=== PATIENT | male | born 1935 | race Caucasian/White ===

== ENCOUNTER 2018-11-24 13:20 | Inpatient (IN) | payer MEDICARE ==
[~2018-11-24 13:20] MED LIST: ISOVUE-370 76%-LOCM 1 ML ONE
--- NOTE | 2018-11-24 13:38 | CT ---
CT HEAD WITHOUT CONTRAST: 11/24/18 Multiple axial tomograms obtained through the head without IV enhancement. INDICATION: Stroke alert. Left side weakness. No comparison study. Mild cortical volume loss. Ventricles have normal size and position. No evidence of edema or hemorrha ge. No evidence of acute infarct. Sinuses are clear. IMPRESSION: No acute process. Findings relayed to Dr. Bro at 1:28 p.m. POS: [facility]
[2018-11-24 13:45] LABS: Hemoglobin 11.2 g/dL (14.0-18.0); Mean Corpuscular HGB CONC 32.9 g/dL (32.0-36.0); Mean Corpuscular Hemoglobin 29.8 pg (27.0-31.0); Mean Corpuscular Volume 90.8 fL (78.0-98.0); Mean Platelet Volume 8.3 fL (7.4-10.4); Platelet Count 218 thou/uL (130-400); RBC Distribution Width 12.1 % (11.5-14.5); Red Blood Cell (RBC) Count 3.77 mill/uL (4.70-6.10); White Blood Cell (WBC) Count 10.5 thou/uL (4.8-10.8)
[2018-11-24 13:50] LABS: INR-International Normal Ratio 1.3; PTT 36.9 SEC (22.9-36.1); Prothrombin Time 16.4 SEC (12.0-14.7)
[2018-11-24 13:56] LABS: ALT (SGPT) 16 U/L (8-55); AST (SGOT) 21 U/L (5-34); Albumin 3.4 g/dL (3.4-4.8); Alkaline Phosphatase 80 U/L (40-150); Anion Gap 12 mmol/L (10-20); BUN (Urea Nitrogen) 26 mg/dL (8.4-25.7); Bilirubin, Total 0.9 mg/dL (0.2-1.2); CK (CPK) 11 U/L (30-200); Calc. Creatinine Clearance 0 mL/min (70-130); Calcium 9.4 mg/dL (7.8-10.44); Carbon Dioxide 24 mmol/L (23-31); Chloride 99 mmol/L (98-107); Estimated GFR-MDRD 46; Globulin 3.3 g/dL (2.4-3.5); Glucose 115 mg/dL (83-110); Potassium 4.9 mmol/L (3.5-5.1); Protein, Total 6.7 g/dL (5.8-8.1); Sodium 130 mmol/L (136-145)
[2018-11-24 14:05] LABS: Band 5 % (5-11); Lymphocytes 6 % (21-51); MDiff Complete? YES; Monocytes 5 % (0-10); Neutrophil 84 % (42-75); Platelet Morphology Comment Appears Adequate
[2018-11-24 14:25] LABS: CKMB 0.7 ng/mL (0-6.6)
--- NOTE | 2018-11-24 14:28 | RAD ---
SINGLE VIEW OF THE CHEST: 11/24/18 COMPARISON: None. HISTORY: Left sided weakness and altered mental status. FINDINGS: Single view of the chest shows a normal sized cardiomediastinal silhouette. The patient is status pos t sternotomy. There is no evidence of consolidation, mass, or pleural effusion. Degenerative changes are seen in the spine and right shoulder. The patient has a healed fracture of the right clavicle. IMPRESSION: No evidence of acute cardiopulmonary disease. POS: [facility]
[2018-11-24 14:30] LABS: Bilirubin Negative (Negative); Blood, Urine Negative (Negative); Glucose, Urine (Dipstick) Negative (Negative); Leukocyte Negative (Negative); Nitrite Negative (Negative); Protein, Urine (Dipstick) Negative (Neg-Trace); Urobilinogen 0.2 mg/dL (Less than 2)
[2018-11-24 14:32] LABS: Clarity Clear (Clear)
[2018-11-24 14:56] LABS: INR-International Normal Ratio 1.4; PTT 37.8 SEC (22.9-36.1); Prothrombin Time 16.8 SEC (12.0-14.7)
--- NOTE | 2018-11-24 14:57 | PDOC.FPRHP ---
- History of Present Illness Chief Complaint: Weakness History of Present Illness: Mr. Bella is unable to provide much medical hx, he is AOx1 on exam, Denies any pain or other symptoms. The following hx is compiled from medical records sent with patient and medical staff. no family in exam room. no number provided. It was reported at approximately 1030 pt was noted to have L sided weakness and a change in mental status. EMS arrived and noted L sided weakness as well as slurred speech. pt was noted to be improved on arrival, NIH initially 3 and improving. He reports he is here to see if he has a stent blocked. He denies any pain, dizziness, SOB, visual disturbance, or GI upset ED Course: CMP, CBC, trop, CK, PT/INR, UA CT/CTA head reveal significant stenosis of right ICA, otherwise no bleed/ ischemia - History PMHx:Afib, HTN, BPH, GERD, CAD, HLD PSHx: Porcine valve replacement, multiple ortho sgx, coronary artery stent placement FHx: NC Social: remote hx of alcohol and tobacco abuse - Review of Systems ROS unobtainable: due to mental status - Vital signs BP 132/52, Pulse: 54, Resp: 18, Temp: 97.9 (Oral), Pain: 0, O2 sat: 100 on Room Air, FMR H&P: Results - Labs Result Diagrams: 11/24/18 13:30 11/24/18 13:30 Lab results: WBC 10.5 thou/uL (4.8-10.8) 11/24/18 13:30 Hgb 11.2 g/dL (14.0-18.0) L 11/24/18 13:30 Hct 34.2 % (42.0-52.0) L 11/24/18 13:30 MCV 90.8 fL (78.0-98.0) 11/24/18 13:30 Plt Count 218 thou/uL (130-400) 11/24/18 13:30 Band Neuts % (Manual) 5 % (5-11) 11/24/18 13:30 Sodium 130 mmol/L (136-145) L 11/24/18 13:30 Potassium 4.9 mmol/L (3.5-5.1) 11/24/18 13:30 Chloride 99 mmol/L (98-107) 11/24/18 13:30 Carbon Dioxide 24 mmol/L (23-31) 11/24/18 13:30 BUN 26 mg/dL (8.4-25.7) H 11/24/18 13:30 Creatinine 1.48 mg/dL (0.7-1.3) H 11/24/18 13:30 Glucose 115 mg/dL (83-110) H 11/24/18 13:30 Calcium 9.4 mg/dL (7.8-10.44) 11/24/18 13:30 Total Bilirubin 0.9 mg/dL (0.2-1.2) 11/24/18 13:30 AST 21 U/L (5-34) 11/24/18 13:30 ALT 16 U/L (8-55) 11/24/18 13:30 Alkaline Phosphatase 80 U/L (40-150) 11/24/18 13:30 Creatine Kinase 11 U/L (30-200) L 11/24/18 13:30 CK-MB (CK-2) 0.7 ng/mL (0-6.6) 11/24/18 13:30 Serum Total Protein 6.7 g/dL (5.8-8.1) 11/24/18 13:30 Albumin 3.4 g/dL (3.4-4.8) 11/24/18 13:30 Urine Ketones Negative mg/dL (Negative) 11/24/18 14:00 Urine Blood Negative (Negative) 11/24/18 14:00 Urine Nitrite Negative (Negative) 11/24/18 14:00 Ur Leukocyte Esterase Negative (Negative) 11/24/18 14:00 FMR H&P: A/P - Problem List (1) TIA (transient ischemic attack) Current Visit: Yes Status: Acute Code(s): G45.9 - TRANSIENT CEREBRAL ISCHEMIC ATTACK, UNSPECIFIED (2) Elevated troponin Current Visit: Yes Status: Acute Code(s): R74.8 - ABNORMAL LEVELS OF OTHER SERUM ENZYMES (3) JORGE L (acute kidney injury) Current Visit: Yes Status: Acute Code(s): N17.9 - ACUTE KIDNEY FAILURE, UNSPECIFIED (4) HTN (hypertension) Current Visit: Yes Status: Acute Code(s): I10 - ESSENTIAL (PRIMARY) HYPERTENSION (5) BPH (benign prostatic hyperplasia) Current Visit: Yes Status: Acute Code(s): N40.0 - BENIGN PROSTATIC HYPERPLASIA WITHOUT LOWER URINRY TRACT SYMP (6) GERD (gastroesophageal reflux disease) Current Visit: Yes Status: Acute Code(s): K21.9 - GASTRO-ESOPHAGEAL REFLUX DISEASE WITHOUT ESOPHAGITIS (7) Afib Current Visit: Yes Status: Acute Code(s): I48.91 - UNSPECIFIED ATRIAL FIBRILLATION - Plan TIA - L sided weakness and slurred speech seemingly resolved at this point, difficult neuro exam - CTA/CT brain/neck showing stenosis but no ischemic defect or bleed - with improving weakness, unsure hx. not a candidate for TPA - PT/PTT elevated - med list indicates asa, eliquis, clopidogrel, lipitor on board - Echo, MRI pending - NPO pending speech JORGE L - most likely prerenal, s/p 1L in ED - monitor BMP Elevated troponin - most likely demand, continue to trend HTN - permissive htn for 24hrs - resume home meds afterwards GERD - continue home meds Afib - continue home meds CAD - continue home meds code: OOH DNR provided ppx: jairo Dispo: obs on stroke, routine TIA work up Addendum - Attending - Attending Attestation Date/Time: 11/24/18 3005 I personally evaluated the patient and discussed the management with Dr. Carlos Alberto Hrerera. I agree with the History, Examination, Assessment and Plan documented above with any addition or exceptions noted below. Patient with unknown medical history as he is poor historian
--- NOTE | 2018-11-24 15:05 | CT ---
CTA OF THE NECK WITH CONTRAST CTA OF THE HEAD WITH CONTRAST 11/24/18 COMPARISON: CT brain 11/24/18. HISTORY: Right sided weakness. Possible stroke. TECHNIQUE: 1. Multiple contiguous axial images were obtained in a CTA of the neck with contrast. 3D sagitta l and coronal MIP reformats were performed. 2. Multiple contiguous axial images were obtained in a CTA of the head with contrast. 3D sagitta l and coronal MIP reformats were performed. FINDINGS: CTA NECK: Atherosclerotic disease is seen in the aortic arch. The subclavian arteries are patent without signif icant focal atherosclerotic disease. The common carotid arteries have a normal origin from the aortic arch. No significant proximal atherosclerotic disease is seen. The patient has a stent in the left distal common carotid artery as well as a stent in the proximal l eft internal carotid artery. There is an area of focal stenosis along the proximal aspect of the inte rnal carotid artery stent with approximately 75% luminal stenosis per NASCET criteria. The proximal right internal carotid artery is heavily calcified over a length of approximately 1.4 cm . There is a high grade stenosis of greater than 90% in the proximal right internal carotid artery pe r NASCET criteria. Both external carotid arteries are patent. The left vertebral artery is seen proximally. The right vertebral artery is not seen proximally. Verma kristen, the cervical aspect of the right vertebral artery is seen and is diminutive compared to the left . No significant calcifications are seen involving the course of the right vertebral artery proximall y. The visualized lung apices are unremarkable. No cervical adenopathy is seen. The patient is status po st sternotomy. Degenerative changes are seen in the spine. CTA HEAD: The cavernous portion of the bilateral internal carotid arteries are heavily diseased without signifi cant focal narrowing. The bilateral intracranial internal carotid arteries are normal in caliber and branch into normal appearing anterior and middle cerebral arteries. There is no evidence of focal raimundo nosis, occlusion, or aneurysmal dilatation of the anterior circulation. The left vertebral artery is dominant. The vertebral artery form a normal appearing basilar artery. T he posterior cerebral arteries and cerebellar arteries are patent. There is no evidence of focal sten osis, aneurysmal dilatation, or occlusion in the posterior circulation. IMPRESSION: 1. Severe stenosis of the proximal right internal carotid artery of greater than 90%. 2. Status post stenting of the left carotid artery with narrowing of the proximal aspect of the left internal carotid artery stent as above. 3. Diminutive proximal right vertebral artery. This may represent a hypoplastic right vertebral artery or occlusion of the proximal vertebral artery with retrograde flow in the right vertebral mana ry via collaterals. 4. No evidence of intracranial significant vascular abnormality. Dr. Bro notified of the findings at 2:37 p.m. on 11/24/18.
[2018-11-24] MEDS ORDERED: Aspirin Chewable 81 MG TAB ONE (15:40)
[2018-11-24 17:26] LABS: Troponin I 0.028 ng/mL (< 0.028)
[2018-11-24] MEDS ORDERED: Ondansetron PF 4 MG/2 ML Vial IVP PRN (17:28)
[2018-11-24] MEDS ORDERED: Acetaminophen 650 MG Suppository PR PRN (17:28)
[2018-11-24] MEDS ORDERED: Ondansetron ODT 4 MG TAB PO PRN (17:28)
[2018-11-24] MEDS ORDERED: hydrALAZINE 20 MG/ML VIAL SLOW IVP PRN (17:28)
[2018-11-24 18:11] VITALS: BMI 33.4
[2018-11-24 21:20] LABS: Troponin I 0.016 ng/mL (< 0.028)
[2018-11-25 05:56] LABS: Anion Gap 10 mmol/L (10-20); BUN (Urea Nitrogen) 22 mg/dL (8.4-25.7); Calc. Creatinine Clearance 67 mL/min (70-130); Calcium 9.6 mg/dL (7.8-10.44); Carbon Dioxide 26 mmol/L (23-31); Chloride 100 mmol/L (98-107); Estimated GFR-MDRD 50; Glucose 96 mg/dL (83-110); Potassium 4.4 mmol/L (3.5-5.1); Sodium 132 mmol/L (136-145)
--- NOTE | 2018-11-25 08:08 | PDOC.FM ---
- Subjective Subjective: pt resting comfortably in bed, at bedside reports he is near baseline b/l LE weakness, wheelchair bound - Objective Vital Signs & Weight: Vital Signs (12 hours) Temp Pulse Resp BP Pulse Ox 11/25/18 07:55 100.3 F H 70 18 156/66 H 99 11/25/18 00:00 98.9 F 65 16 152/60 H 94 L Weight Weight 111.811 kg I&O: 11/24/18 11/25/18 11/26/18 06:59 06:59 06:59 Output Total 250 Balance -250 Result Diagrams: 11/24/18 13:30 11/25/18 05:09 Phys Exam - Physical Examination Constitutional: NAD HEENT: moist MMs Neck: supple Respiratory: clear to auscultation bilateral Cardiovascular: no significant murmur Gastrointestinal: no distention Musculoskeletal: pulses present Neurological: moves all 4 limbs Psychiatric: normal affect Skin: no rash Dx/Plan (1) TIA (transient ischemic attack) Code(s): G45.9 - TRANSIENT CEREBRAL ISCHEMIC ATTACK, UNSPECIFIED Status: Acute (2) Elevated troponin Code(s): R74.8 - ABNORMAL LEVELS OF OTHER SERUM ENZYMES Status: Acute (3) JORGE L (acute kidney injury) Code(s): N17.9 - ACUTE KIDNEY FAILURE, UNSPECIFIED Status: Acute (4) HTN (hypertension) Code(s): I10 - ESSENTIAL (PRIMARY) HYPERTENSION Status: Acute (5) BPH (benign prostatic hyperplasia) Code(s): N40.0 - BENIGN PROSTATIC HYPERPLASIA WITHOUT LOWER URINRY TRACT SYMP Status: Acute (6) GERD (gastroesophageal reflux disease) Code(s): K21.9 - GASTRO-ESOPHAGEAL REFLUX DISEASE WITHOUT ESOPHAGITIS Status: Acute (7) Afib Code(s): I48.91 - UNSPECIFIED ATRIAL FIBRILLATION Status: Acute - Plan Plan: TIA - L sided weakness and slurred speech seemingly resolved at this point, difficult neuro exam - CTA/CT brain/neck showing stenosis but no ischemic defect or bleed - with improving weakness, unsure hx. not a candidate for TPA - PT/PTT elevated - med list indicates asa, eliquis, clopidogrel, lipitor on board - Echo, MRI pending - NPO pending speech ICA stenosis - revealed on CTA, contralateral side stented in the past - medical mgmt optimized - will consult CV surg for surgical options JORGE L, improved - most likely prerenal, s/p 1L in ED - monitor BMP Elevated troponin, resolved - most likely demand, downtrended HTN - permissive htn for 24hrs - resume home meds afterwards GERD - continue home meds Afib - continue home meds CAD - continue home meds code: OOH DNR provided ppx: jairo Dispo: consider placement vs DC home pending MRI/Echo Addendum - Attending - Attending Attestation Date/Time: 11/25/18 1052 I personally evaluated the patient and discussed the management with Dr. Herrera. I agree with the History, Examination, Assessment and Plan documented above with any addition or exceptions noted below.
[2018-11-25] MEDS ORDERED: Potassium Chloride 10 MEQ TAB PO SCH ×2 (09:00→11:30)
[2018-11-25] MEDS ORDERED: Apixaban 5 MG TAB PO SCH (09:00)
[2018-11-25] MEDS ORDERED: Albuterol Sulfate 2.5 mg/3 ml Neb ONE (10:18)
[2018-11-25] MEDS: Albuterol Sulfate 2.5 mg/3 ml Neb NEB SCH (10:25)
[2018-11-25] MEDS: Acetaminophen 325 MG TAB PO PRN (11:14)
[2018-11-25] MEDS: Furosemide 40 MG TAB PO SCH (11:16)
[2018-11-25] MEDS: Aspirin 81 mg Enteric Coated Tablet PO SCH (11:16)
[2018-11-25] MEDS: Clopidogrel Bisulfate 75 MG TAB PO SCH (11:16)
--- NOTE | 2018-11-25 14:33 | MRI ---
MRI BRAIN WITHOUT CONTRAST: INDICATIONS: TIA. FINDINGS: Motion artifact degrades the study. Mild cortical volume loss. Mild chronic ischemic white matter c hange is seen in the periventricular regions. The diffusion-weighted sequence does show restricted diffusion involving the posterior insular cortex , extending into the posterior frontal and parietal lobe cortex. There are also numerous tiny foci of restricted diffusion seen in the stratton-white junction of both cer ebral hemispheres, superiorly. The intracranial internal carotid arteries and cerebral arteries show flow voids. IMPRESSION: Acute cortical infarct involving the right posterior insular cortex, extending into the right posteri or frontal parietal cortex. This could be explained on the basis of the severe right carotid stenosi s described on yesterday's CT angio study. However, there are numerous tiny foci of restricted diffu elisabeth seen in the stratton-white junction of both cerebral hemispheres. This raises the question of possi ble embolic phenomenon, and I recommend clinical correlation regarding etiology and possible origin o f emboli. POS: [facility]
[2018-11-25] MEDS: Atorvastatin Calcium 10 MG TAB PO SCH (20:55)
[2018-11-25] MEDS: Apixaban 5 MG TAB PO SCH (20:55)
[2018-11-25] MEDS: Famotidine 20 MG TAB PO SCH (20:55)
[2018-11-25] MEDS: Metoprolol Tartrate 25 MG TAB PO SCH (20:55)
--- NOTE | 2018-11-25 22:50 | CON ---
DATE OF CONSULTATION: 11/25/2018 CONSULTING PHYSICIAN: Hospitalist Service. IMPRESSION: 1. Right small cortical infarct with left-sided weakness, which appears to be improving. 2. Right internal carotid artery stenosis of 90%. 3. Left internal carotid artery stenosis of 75% above a prior stent. 4. Ventricular aneurysm with clot. 5. The patient is already on maximum medical therapy. PLAN: 1. Transfer to intermediate. 2. Follow up with his vascular surgeon in [place]. HISTORY OF PRESENT ILLNESS: Mr. Bella is an 83-year-old gentleman with a past history of aortic valve replacement, secondary ventricular aneurysm, and a clot that was known. He had amaurosis fugax about a year ago and had a left carotid stent placed. He has been on a combination of Eliquis, Plavix, and aspirin until not long ago. Aspirin was discontinued by his customer supply coordinator. He presented with acute left-sided weakness. His MRI of the brain shows a small area of infarction in the right posterior parietal region. He has some moderate small vessel ischemic changes otherwise. His carotid disease is as noted above. PAST MEDICAL HISTORY: Hypertension, atrial fibrillation, amaurosis fugax. ALLERGIES: SULFA. SOCIAL HISTORY: No tobacco use. FAMILY HISTORY: Noncontributory. REVIEW OF SYSTEMS: Ten-system review of systems is otherwise negative. PHYSICAL EXAMINATION: GENERAL: He is a somewhat overweight elderly gentleman, lying in bed, in no distress. VITAL SIGNS: Blood pressure 137/60, pulse 75, respirations 18, and temperature 99.4. HEENT: Pupils are equal. Conjunctivae are clear. His cranium is normocephalic and atraumatic. NECK: No lymphadenopathy. EXTREMITIES: No cyanosis. NEUROLOGIC: He is alert and cooperative. He is markedly hard of hearing. Cranial nerves appear to be intact. Motor exam shows antigravity strength in the left arm with some slight clumsiness. He has only partial antigravity strength in the left leg. Sensation is grossly intact. No tremor or dysmetria is present. Gait is not tested due to his weakness. IMAGING: Reviewed. LABORATORY STUDIES: White blood cell count 10.5, hemoglobin 11.2. INR is 1.3. BUN 26, creatinine 1.48, and urine was clear. SUMMARY: This is an elderly gentleman with possible embolic stroke related to his right carotid disease. He is already on antiplatelet and anticoagulant therapy. It is not much more we can really do other than assist in his recovery. Job ID: [id number]
--- NOTE | 2018-11-25 22:58 | CON ---
DATE OF CONSULTATION: HISTORY OF PRESENT ILLNESS: Mr. Bella is an 83-year-old gentleman, who has an extensive vascular and cardiac history. He has been cared for by the [facility]. He was at home and had multiple recent neurologic events, which led to eventually his left leg becoming nonfunctional. They called for an ambulance and it was felt he needed helicopter. The helicopter that was sent was [facility] from [facility] and he was brought here. Once he arrived here, his left arm and leg were found to be weak, but were getting better. He has chronic speech difficulties. He has a history of left internal carotid stent placed 1 year ago in [place] for a bout of amaurosis fugax. He has recovered some vision in his left eye, but it is not completely recovered. He has history of bioprosthetic aortic valve replacement. 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 He has been managed on Eliquis 5 mg b.i.d. until recently when his primary care doctor backed the Eliquis to once a day. He has been on Plavix chronically after his carotid stent. He also had been on aspirin 81 mg a day, which has been stopped recently. As part of his workup, he had a CT angiogram of his neck performed, which shows approximately 70% to 80% restenosis on the left of his carotid system. He also has a 90% proximal right carotid stenosis. MRI of his brain shows multiple infarcts in his right middle cerebral territory. There are no left-sided infarcts. An echocardiogram has been ordered to evaluate his ventricle and valve, but it has not been completed. Currently, he is resting comfortably in bed. He does have some weakness of his left leg, but his left arm seems to be fairly strong. His speech is at his baseline per his . PAST MEDICAL HISTORY: 1. Atrial fibrillation. 2. Hypertension. 3. BPH with prostatitis. 4. GERD. 5. Coronary artery disease. 6. Dyslipidemia. 7. Aortic stenosis. 8. Carotid stenosis with left-sided stent placement. PAST SURGICAL HISTORY: 1. Bovine pericardial aortic valve replacement. 2. Multiple orthopedic surgeries. 3. Left carotid stenting. 4. Coronary stent placement. SOCIAL HISTORY: He does not use alcohol or tobacco currently. REVIEW OF SYSTEMS: Not performed due to the patient's speech difficulties. PHYSICAL EXAMINATION: GENERAL: A well-developed man, resting comfortably in bed. VITAL SIGNS: His height is 6 feet, weight is 246 pounds. BSA is 2.38. His temperature is 99.4, pulse is 75 and regular, blood pressure is 137/60. HEENT: Sclerae nonicteric. Pupils are equal and round bilaterally. NECK: Supple. He has bilateral carotid bruits. CHEST: Clear bilaterally. He has a good valve snap. HEART: Rhythm is regular. ABDOMEN: Soft and nontender. EXTREMITIES: There is no cyanosis, clubbing, or edema. ASSESSMENT AND PLAN: Mr. Bella is an 83-year-old gentleman, who has a complicated cardiac and vascular history in regard to his cerebrovascular system. 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 I would resume his Eliquis at 5 mg b.i.d. currently. It is unclear to me whether his stroke is carotid in origin or left ventricular thrombus in origin. Due to the multifocal nature of this, I would lean towards embolic in nature from his left ventricle. This also could be from his aortic valve. I would continue his Plavix at its current level. Once he is recovered, he should follow up with the physicians in [place], who have a better handle on his overall situation. Job ID: [id number]
[2018-11-26] MEDS: Acetaminophen 325 MG TAB PO PRN ×2 (01:08→18:06)
[2018-11-26 02:11] LABS: #Eosinphils 0.1 thou/uL (0.0-0.7); #Monocytes 0.9 thou/uL (0.11-0.59); %Basophils 0.3 % (0.0-1.0); %Eosinophils 0.8 % (0.0-10.0); %Lymphocytes 11.4 % (21.0-51.0); %Monocytes 9.6 % (0.0-10.0); %Neutrophils 77.8 % (42.0-75.0); Hemoglobin 11.1 g/dL (14.0-18.0); Mean Corpuscular Hemoglobin 31.9 pg (27.0-31.0); Mean Corpuscular Volume 91.1 fL (78.0-98.0); Mean Platelet Volume 7.7 fL (7.4-10.4); Platelet Count 189 thou/uL (130-400); RBC Distribution Width 12.3 % (11.5-14.5)
[2018-11-26] MEDS: Furosemide 20 MG TAB PO SCH (08:57)
[2018-11-26] MEDS: Potassium Chloride 10 MEQ TAB PO SCH (08:58)
[2018-11-26] MEDS: Clopidogrel Bisulfate 75 MG TAB PO SCH (08:58)
[2018-11-26] MEDS: Famotidine 20 MG TAB PO SCH ×2 (08:58→21:00)
[2018-11-26] MEDS: Aspirin 81 mg Enteric Coated Tablet PO SCH (08:59)
[2018-11-26] MEDS: Losartan 25 MG TAB PO SCH (08:59)
[2018-11-26] MEDS: Apixaban 5 MG TAB PO SCH ×2 (08:59→21:00)
--- NOTE | 2018-11-26 09:01 | RAD ---
Chest one view HISTORY: Dyspnea. Fever. COMPARISON: 11/24/2018. FINDINGS: Cardiac silhouette is magnified by projection and upper limits of normal in size. Pulmonary vasculature now within normal limits. Mediastinum is midline with postoperative changes and aortic calcification. No lobar consolidation or evidence of pneumothorax. Severe degenerative changes right shoulder. Old right rib fractures. IMPRESSION: Interval decrease in pulmonary vascular congestion. No new abnormalities are demonstrated .
--- NOTE | 2018-11-26 09:04 | PDOC.FM ---
- Subjective Subjective: pt resting comfortably in bed, fevered overnight, no complaints this morning. - Objective Vital Signs & Weight: Vital Signs (12 hours) Temp Pulse Resp BP Pulse Ox 11/26/18 07:39 98.2 F 59 L 16 137/58 L 92 L 11/26/18 03:59 94 L 11/26/18 03:10 98.9 F 65 20 130/64 94 L 11/25/18 23:18 100.7 F H 65 20 163/67 H 93 L Weight Weight 111.811 kg I&O: 11/25/18 11/26/18 11/27/18 06:59 06:59 06:59 Intake Total 460 Output Total 250 1125 Balance -250 -665 Result Diagrams: 11/26/18 02:03 11/25/18 05:09 Phys Exam - Physical Examination Constitutional: NAD HEENT: moist MMs Neck: no JVD Respiratory: clear to auscultation bilateral Cardiovascular: RRR, no significant murmur Gastrointestinal: soft, no distention Musculoskeletal: pulses present Neurological: moves all 4 limbs Psychiatric: normal affect Skin: no rash Dx/Plan (1) TIA (transient ischemic attack) Code(s): G45.9 - TRANSIENT CEREBRAL ISCHEMIC ATTACK, UNSPECIFIED Status: Acute (2) Elevated troponin Code(s): R74.8 - ABNORMAL LEVELS OF OTHER SERUM ENZYMES Status: Acute (3) JORGE L (acute kidney injury) Code(s): N17.9 - ACUTE KIDNEY FAILURE, UNSPECIFIED Status: Acute (4) HTN (hypertension) Code(s): I10 - ESSENTIAL (PRIMARY) HYPERTENSION Status: Acute (5) BPH (benign prostatic hyperplasia) Code(s): N40.0 - BENIGN PROSTATIC HYPERPLASIA WITHOUT LOWER URINRY TRACT SYMP Status: Acute (6) GERD (gastroesophageal reflux disease) Code(s): K21.9 - GASTRO-ESOPHAGEAL REFLUX DISEASE WITHOUT ESOPHAGITIS Status: Acute (7) Afib Code(s): I48.91 - UNSPECIFIED ATRIAL FIBRILLATION Status: Acute - Plan Plan: CVA - L sided weakness and slurred speech seemingly resolved at this point, difficult neuro exam - CTA/CT brain/neck showing stenosis but no ischemic defect or bleed - with improving weakness, unsure hx. not a candidate for TPA - PT/PTT elevated, med list indicates asa, eliquis, clopidogrel, lipitor on board - Echo pending - MRI reveals acute cortical infarct, right posterior - neurology, Dr. Hernandez consulted, appreciate recs - continue medical mgmt, rehab ICA stenosis - revealed on CTA, contralateral side stented in the past - medical mgmt optimized - will consult CV surg for surgical options - recommend f/u with CV surg outpt JORGE L, improved - most likely prerenal, s/p 1L in ED - monitor BMP Elevated troponin, resolved - most likely demand, downtrended HTN - permissive htn for 24hrs - resume home meds afterwards GERD - continue home meds Afib - continue home meds CAD - continue home meds code: OOH DNR provided ppx: jairo Dispo: stable for DC to rehab when available Addendum - Attending - Attending Attestation Date/Time: 11/26/18 2039 I personally evaluated the patient and discussed the management with Dr. Herrera. I agree with the History, Examination, Assessment and Plan documented above with any addition or exceptions noted below.
[2018-11-26] MEDS ORDERED: Vancomycin HCl 1.75 GM in Sodium Chloride 0.9% 500 ML IVPB SCH (18:00)
[2018-11-26] MEDS: Metoprolol Tartrate 25 MG TAB PO SCH (21:00)
[2018-11-26] MEDS: Atorvastatin Calcium 10 MG TAB PO SCH (21:00)
[2018-11-27 05:18] LABS: #Eosinphils 0.1 thou/uL (0.0-0.7); #Lymphocytes 1.2 thou/uL (1.20-3.40); #Neutrophils 6.5 thou/uL (1.40-6.50); %Basophils 0.3 % (0.0-1.0); %Eosinophils 1.2 % (0.0-10.0); %Lymphocytes 13.2 % (21.0-51.0); %Monocytes 11.3 % (0.0-10.0); Hemoglobin 10.9 g/dL (14.0-18.0); Mean Corpuscular HGB CONC 33.2 g/dL (32.0-36.0); Mean Corpuscular Hemoglobin 30.1 pg (27.0-31.0); Mean Corpuscular Volume 90.7 fL (78.0-98.0); Mean Platelet Volume 8.2 fL (7.4-10.4); Platelet Count 193 thou/uL (130-400); RBC Distribution Width 12.3 % (11.5-14.5); Red Blood Cell (RBC) Count 3.63 mill/uL (4.70-6.10); White Blood Cell (WBC) Count 8.7 thou/uL (4.8-10.8)
[2018-11-27 05:45] LABS: ALT (SGPT) 11 U/L (8-55); AST (SGOT) 16 U/L (5-34); Albumin 3.1 g/dL (3.4-4.8); Alkaline Phosphatase 72 U/L (40-150); Anion Gap 12 mmol/L (10-20); BUN (Urea Nitrogen) 25 mg/dL (8.4-25.7); Calc. Creatinine Clearance 58 mL/min (70-130); Calcium 9.1 mg/dL (7.8-10.44); Carbon Dioxide 24 mmol/L (23-31); Chloride 97 mmol/L (98-107); Estimated GFR-MDRD 42; Glucose 105 mg/dL (83-110); Potassium 4.1 mmol/L (3.5-5.1); Protein, Total 6.1 g/dL (5.8-8.1); Sodium 129 mmol/L (136-145)
--- NOTE | 2018-11-27 07:15 | PDOC.FM ---
- Subjective Subjective: pt resting comfortably in bed, no events overnight. at bedside reports no new weakness, or headache - Objective Vital Signs & Weight: Vital Signs (12 hours) Temp Pulse Resp BP Pulse Ox 11/27/18 03:05 98.5 F 61 20 105/60 95 11/26/18 23:05 98.5 F 51 L 20 110/62 94 L 11/26/18 20:00 98 11/26/18 19:20 98.5 F 88 20 123/65 98 Weight Weight 111.811 kg I&O: 11/26/18 11/27/18 11/28/18 06:59 06:59 06:59 Intake Total 460 410 Output Total 1125 350 Balance -665 60 Result Diagrams: 11/27/18 04:51 11/27/18 04:51 Phys Exam - Physical Examination Constitutional: NAD HEENT: moist MMs Neck: no JVD Respiratory: clear to auscultation bilateral Cardiovascular: RRR murmur Gastrointestinal: no distention Musculoskeletal: pulses present Neurological: moves all 4 limbs Psychiatric: normal affect Skin: no rash Dx/Plan (1) TIA (transient ischemic attack) Code(s): G45.9 - TRANSIENT CEREBRAL ISCHEMIC ATTACK, UNSPECIFIED Status: Acute (2) Elevated troponin Code(s): R74.8 - ABNORMAL LEVELS OF OTHER SERUM ENZYMES Status: Acute (3) JORGE L (acute kidney injury) Code(s): N17.9 - ACUTE KIDNEY FAILURE, UNSPECIFIED Status: Acute (4) HTN (hypertension) Code(s): I10 - ESSENTIAL (PRIMARY) HYPERTENSION Status: Acute (5) BPH (benign prostatic hyperplasia) Code(s): N40.0 - BENIGN PROSTATIC HYPERPLASIA WITHOUT LOWER URINRY TRACT SYMP Status: Acute (6) GERD (gastroesophageal reflux disease) Code(s): K21.9 - GASTRO-ESOPHAGEAL REFLUX DISEASE WITHOUT ESOPHAGITIS Status: Acute (7) Afib Code(s): I48.91 - UNSPECIFIED ATRIAL FIBRILLATION Status: Acute - Plan Plan: CVA - L sided weakness and slurred speech seemingly resolved at this point, difficult neuro exam - CTA/CT brain/neck showing stenosis but no ischemic defect or bleed, consider septic emboli - optimized medical mgmt - TTE pending - MRI reveals acute cortical infarct, right posterior - neurology, Dr. Hernandez consulted, appreciate recs - rhehab pending PVE - intermittent fever, possible embolic disease, hx of blood infections/Porcine valve placement - echocardiogram pending, vanc started - BCx E. Faecalis, consider adding gent today - consult cards, HONG - discuss need for surgery and/or transfer ICA stenosis - revealed on CTA, contralateral side stented in the past - medical mgmt optimized - will consult CV surg for surgical options - recommend f/u with CV surg outpt JORGE L, improved - most likely prerenal, s/p 1L in ED - monitor BMP Elevated troponin, resolved - most likely demand, downtrended HTN - permissive htn for 24hrs - resume home meds afterwards GERD - continue home meds Afib - continue home meds CAD - continue home meds code: OOH DNR provided ppx: jairo Dispo: discuss goals of care today Addendum - Attending - Attending Attestation Date/Time: 11/27/18 9822 I personally evaluated the patient and discussed the management with Dr. Herrera. I agree with the History, Examination, Assessment and Plan documented above with any addition or exceptions noted below. Patient here with CVA and what appears to be new diagnosis of Enterococcus f. bacteremia in the setting of non [place] heart valve. reports history of frequent prostatitis in the past, has had routine and normal colonoscopies so do not suspect colon origin. We are not currently sure where this could be coming from. He will continue on Vanc until sensitivities result. Will consult ID. Echo did not show any vegetations however it was TTE. Renal function overall stable. PCT stable. He has been accepted for rehab and awaiting insurance authorization. Await recs regarding abx from ID. Patient may need to consider inpatient transfer versus outpatient follow up with his CV surgeon in the case he needs further interventions for suspected endocarditis.
[2018-11-27] MEDS: Albuterol Sulfate 2.5 mg/3 ml Neb NEB SCH (07:37)
[2018-11-27] MEDS ORDERED: Lactated Ringer's 1,000 ML IV SCH (08:45)
[2018-11-27] MEDS: Potassium Chloride 10 MEQ TAB PO SCH (09:07)
[2018-11-27] MEDS: Aspirin 81 mg Enteric Coated Tablet PO SCH (09:09)
[2018-11-27] MEDS: Apixaban 5 MG TAB PO SCH ×2 (09:09→19:43)
[2018-11-27] MEDS: Famotidine 20 MG TAB PO SCH ×2 (09:10→19:43)
[2018-11-27] MEDS: Clopidogrel Bisulfate 75 MG TAB PO SCH (09:11)
[2018-11-27] MEDS: Furosemide 40 MG TAB PO SCH (09:36)
[2018-11-27] MEDS ORDERED: SODIUM CHLORIDE 0.9% IVPB SCH (10:00)
[2018-11-27] MEDS ORDERED: GENTAMICIN SULFATE IVPB SCH (10:00)
[2018-11-27] MEDS: Losartan 25 MG TAB PO SCH (10:04)
--- NOTE | 2018-11-27 11:58 | EKG ---
Test Reason : Blood Pressure : / mmHG Vent. Rate : 050 BPM Atrial Rate : 050 BPM P-R Int : 000 ms QRS Dur : 132 ms QT Int : 476 ms P-R-T Axes : 000 -20 008 degrees QTc Int : 433 ms Atrial fibrillation with slow ventricular response Right bundle branch block Cannot rule out Inferior infarct , age undetermined Abnormal ECG Confirmed by DEE DEE TAFOYA D.O. ([id number]), makeup editor EMILE HERCULES ([id number]) on 11/27/2018 11:58:35 AM Referred By: Confirmed By:DEE DEE TAFOYA D.O.
--- NOTE | 2018-11-27 15:00 | CON ---
DATE OF CONSULTATION: 11/27/2018 REASON FOR CONSULTATION: Sepsis and previous history of aortic valve replacement. HISTORY OF PRESENT ILLNESS: Mr. Bella is an 83-year-old gentleman, who has a history of CAD, status post stent placement in addition to aortic valve replacement in 2013. His states he has had significant issues with sepsis and infection mainly from his prostate. He recently presented with CVA with left-sided weakness. He has had some recovery. Dr. Kevin Paredes has been consulted on significant carotid disease. From a CV standpoint, he has had significant issues with sepsis and has been placed on IV antibiotics for several weeks over the last year. No other ameliorating, exacerbating, or precipitating factors present. PAST MEDICAL HISTORY: CAD; aortic stenosis, status post AVR; AFib; BPH; acid reflux; and hyperlipidemia. FAMILY HISTORY: As above. SOCIAL HISTORY: No current tobacco or alcohol use. REVIEW OF SYSTEMS: Ten-point review of systems is difficult to assess. PHYSICAL EXAMINATION: GENERAL: The patient is a pleasant 83-year-old, who is in no acute distress. The patient appears their stated age. VITAL SIGNS: Blood pressure 119/60, pulse 67, and temperature 99. NEUROLOGIC: The patient is alert and oriented x3. Left-sided weakness. HEENT: Sclerae without icterus. Mouth has moist mucous membranes with normal pallor. NECK: No JVD. Carotid upstroke brisk. No bruits bilaterally. LUNGS: Clear to auscultation with unlabored respirations. BACK: No scoliosis or kyphosis. CARDIAC: Regular rate and rhythm with normal S1 and S2. No S3 or S4 noted. No significant rubs, murmurs, thrills, or gallops noted throughout the precordium. PMI is not displaced. There is no parasternal heave. ABDOMEN: Soft, nontender, nondistended. No peritoneal signs present. No hepatosplenomegaly. No abnormal striae. EXTREMITIES: 2+ femoral and 2+ dorsalis pedis pulses. No cyanosis, clubbing, or edema. SKIN: No gross abnormalities. PERTINENT LABORATORY DATA: Hemoglobin 10.9. Creatinine 1.58 and albumin 3.1. IMPRESSION: 1. Recent Escherichia coli sepsis. 2. Status post aortic valve replacement. 3. Previous bouts of sepsis. 4. Atrial fibrillation. 5. Previous cerebrovascular accident. RECOMMENDATIONS: It would certainly seem reasonable to proceed with HONG to assess the aortic valve. We would also assess the mitral valve. There is also history of LV aneurysm with thrombus, which was not appreciated on recent echo. I discussed procedure in full detail with Mr. Bella. Risks included, but not limited to the following: Damage to teeth, mouth, back of throat, damage to esophagus requiring emergency surgery as well as reaction to medication. All questions were answered. Given the above, the patient agreed to proceed with above procedure. Job ID: [id number] MTDD
[2018-11-27] MEDS: Ampicillin 2 GM in Sodium Chloride 0.9% 100 ML IVPB SCH ×2 (18:44→23:31)
--- NOTE | 2018-11-27 19:22 | CON ---
DATE OF CONSULTATION: REASON FOR CONSULTATION: Bacteremia, likely endocarditis. HISTORY OF PRESENT ILLNESS: 83-year-old who has a history of BPH with 2 or 3 different TURPs in the past, nephrolithiasis, A-flutter, who has had an aortic valve replacement with a porcine valve in [place] a few years ago. He developed a left-sided weakness of fairly rapid onset a few days before admission, associated with slurred speech. He had neglect of the left arm, was brought to the emergency room. BP 120/60, pulse 60, O2 saturation 96%. His temperature is normal. Initial labs with a white cell count 10.5, hemoglobin 11, platelets 218 with 84% neutrophils. INR 1.3. His creatinine 1.37, now 1.58, albumin 3.1. Urinalysis was normal. Two sets of blood cultures with Enterococcus faecalis. An echocardiogram showed EF 50% to 55% with dilated left atrium, mild to moderate tricuspid regurg. Currently, Mr. Bella is awake. He has marked hearing impairment and cannot interact verbally very well. He does understand the questions and make hand signals. His is in the room and answered most of the questions. No reports of headaches, visual symptoms, sore throat, odynophagia, dysphagia, no vomiting, no hematemesis, or melena. No dyspnea or chest pain. No abdominal pain or diarrhea. He is voiding without any difficulty. PAST MEDICAL HISTORY: BPH, TURP x3, nephrolithiasis, A-flutter, aortic valve replacement with porcine valve in [place]. PAST SURGICAL HISTORY: Also includes hemorrhoidectomy, screws in the right ankle for fracture, left knee replacement, infected left knee, eventual revision, which was successful. Also had coronary angiograms and stents. ALLERGIES: SULFONAMIDE ANTIBIOTICS. FAMILY HISTORY: Noncontributory. CURRENT MEDICATIONS: 1. Tylenol. 2. Ventolin. 3. Eliquis. 4. Ecotrin. 5. Lipitor. 6. Vitamin D. 7. Plavix. 8. Pepcid. 9. Gentamicin. 10. Metoprolol. 11. Potassium. 12. Vancomycin. PHYSICAL EXAMINATION: VITAL SIGNS: Temperature max 100.7, now he is 98.7, blood pressure 106/75, pulse 61, respirations 18, O2 saturation 96. SKIN: Peripheral IV access. No other findings of significance. No lymphadenopathy. HEENT: Ocular movements conjugate. Nasal passages patent. Ear exam normal. Oral cavity with no [place] teeth remaining in place. NECK: Supple, no jugular vein distention or carotid bruits. LUNGS: Symmetric, clear breath sounds. HEART: S1-S2 without obvious murmurs, regular rate. ABDOMEN: Soft, not distended or tender. No ascites. No bladder distention. No organomegaly. EXTREMITIES: Some limitation of range of motion left knee, but no inflammatory changes noted. Pulses 1+ in dorsalis pedis. Plantar responses are upgoing on the left side. The patient has fairly dense hemiplegia or hemiparesis, left side. Right side strength is normal. NEURO: He is awake, recognizes and daughter and knows where he is. The interview was limited because of his marked hearing impairment. LABORATORY DATA: White cell count is at 8.7, hemoglobin 10.9, platelets 193 with 74% neutrophils and creatinine is up to 1.58. Brain MRI showed acute cortical infarct, right posterior insular cortex extending into the right posterior frontal parietal cortex associated with carotid stenosis, but also numerous bilateral areas suggestive of possible embolic phenomenon. ASSESSMENT: 1. Benign prostatic hypertrophy with nephrolithiasis. 2. Aortic valve replacement with porcine valve in the past. 3. Enterococcus faecalis bacteremia with a concern for endocarditis with embolic phenomena to the brain and the cerebrovascular accident associated with them. A HONG scheduled for tomorrow and we will follow up the results. Will have to be treated for endocarditis one way or another but the HONG will help to determine the state of the aortic valve and other valves since sometimes those processes can require surgical intervention, for example, when there are paravalvular abscesses. We will switch him to ampicillin and Rocephin. The ampicillin dose to be adjusted for renal function. This regimen will avoid the nephrotoxicity typical of ampicillin, gentamicin. He will necessarily develop nephrotoxicity and I do not think he will last more than a week on ampicillin, gentamicin regimen may end up with end- stage renal disease. Duration of therapy six weeks. We will need a PICC line placement and the endpoint will be resolution of bacteremia and follow up the findings in the echocardiogram according to what is found in the HONG. The success rate of this kind of therapy is pretty high. I have had to retreat patients with enterococcal endocarditis after failure of the ampicillin and Rocephin regimen in the past though. Job ID: [id number] [facility]
[2018-11-27] MEDS: Metoprolol Tartrate 25 MG TAB PO SCH (19:43)
[2018-11-27] MEDS: Atorvastatin Calcium 10 MG TAB PO SCH (19:43)
[2018-11-27] MEDS: cefTRIAXone\\ROCEPHIN 2 GM in Sodium Chloride 0.9% 100 ML IVPB SCH (19:43)
[2018-11-28] MEDS: Ampicillin 2 GM in Sodium Chloride 0.9% 100 ML IVPB SCH ×4 (05:21→21:46)
[2018-11-28 07:00] LABS: #Eosinphils 0.1 thou/uL (0.0-0.7); #Lymphocytes 1.1 thou/uL (1.20-3.40); #Monocytes 0.9 thou/uL (0.11-0.59); #Neutrophils 5.8 thou/uL (1.40-6.50); %Basophils 0.2 % (0.0-1.0); %Eosinophils 1.4 % (0.0-10.0); %Lymphocytes 14.2 % (21.0-51.0); %Monocytes 11.5 % (0.0-10.0); %Neutrophils 72.8 % (42.0-75.0); Hemoglobin 10.9 g/dL (14.0-18.0); Mean Corpuscular HGB CONC 33.5 g/dL (32.0-36.0); Mean Corpuscular Hemoglobin 30.3 pg (27.0-31.0); Mean Corpuscular Volume 90.3 fL (78.0-98.0); Platelet Count 190 thou/uL (130-400); RBC Distribution Width 12.3 % (11.5-14.5)
[2018-11-28 07:15] LABS: ALT (SGPT) 10 U/L (8-55); AST (SGOT) 16 U/L (5-34); Albumin 3.1 g/dL (3.4-4.8); Alkaline Phosphatase 64 U/L (40-150); Anion Gap 11 mmol/L (10-20); BUN (Urea Nitrogen) 22 mg/dL (8.4-25.7); Bilirubin, Total 0.9 mg/dL (0.2-1.2); Calc. Creatinine Clearance 59 mL/min (70-130); Calcium 9.3 mg/dL (7.8-10.44); Carbon Dioxide 24 mmol/L (23-31); Chloride 99 mmol/L (98-107); Estimated GFR-MDRD 44; Globulin 2.9 g/dL (2.4-3.5); Glucose 106 mg/dL (83-110); Potassium 4.3 mmol/L (3.5-5.1); Sodium 130 mmol/L (136-145)
--- NOTE | 2018-11-28 07:15 | PDOC.FM ---
- Subjective Subjective: pt resting comfortably in bed, no events overnight. daughter at bedside reports pt intermittently complains of left arm pain. no weakness, numbness or tingling - Objective Vital Signs & Weight: Vital Signs (12 hours) Temp Pulse Resp BP Pulse Ox 11/28/18 03:05 99.8 F H 80 20 109/49 L 92 L 11/27/18 23:10 99.2 F 72 20 124/64 95 11/27/18 19:16 98.5 F 56 L 20 120/67 95 Weight Weight 111.811 kg I&O: 11/27/18 11/28/18 11/29/18 06:59 06:59 06:59 Intake Total 410 700 Output Total 350 1475 Balance 60 -775 Result Diagrams: 11/28/18 06:21 11/28/18 06:21 Phys Exam - Physical Examination Constitutional: NAD HEENT: moist MMs Neck: no JVD Respiratory: clear to auscultation bilateral Cardiovascular: RRR murmur present Gastrointestinal: no distention Musculoskeletal: pulses present Neurological: moves all 4 limbs Psychiatric: normal affect Skin: no rash Dx/Plan (1) TIA (transient ischemic attack) Code(s): G45.9 - TRANSIENT CEREBRAL ISCHEMIC ATTACK, UNSPECIFIED Status: Acute (2) Elevated troponin Code(s): R74.8 - ABNORMAL LEVELS OF OTHER SERUM ENZYMES Status: Acute (3) JORGE L (acute kidney injury) Code(s): N17.9 - ACUTE KIDNEY FAILURE, UNSPECIFIED Status: Acute (4) HTN (hypertension) Code(s): I10 - ESSENTIAL (PRIMARY) HYPERTENSION Status: Acute (5) BPH (benign prostatic hyperplasia) Code(s): N40.0 - BENIGN PROSTATIC HYPERPLASIA WITHOUT LOWER URINRY TRACT SYMP Status: Acute (6) GERD (gastroesophageal reflux disease) Code(s): K21.9 - GASTRO-ESOPHAGEAL REFLUX DISEASE WITHOUT ESOPHAGITIS Status: Acute (7) Afib Code(s): I48.91 - UNSPECIFIED ATRIAL FIBRILLATION Status: Acute - Plan Plan: PVE - intermittent fever, possible embolic disease, hx of blood infections/Porcine valve placement - BCx E. Faecalis, Amp and rocephin (11/28) - consult cards, HONG pending - consult ID, Dr. Rothman, appreciate recs - discuss need for surgery and/or transfer CVA - L sided weakness and slurred speech seemingly resolved at this point, difficult neuro exam - CTA/CT brain/neck showing stenosis but no ischemic defect or bleed, consider septic emboli - optimized medical mgmt - TTE showing adequate EF, Aortic valve replacement - MRI reveals acute cortical infarct, right posterior - neurology, Dr. Hernandez consulted, appreciate recs - rhehab pending ICA stenosis - revealed on CTA, contralateral side stented in the past - medical mgmt optimized - will consult CV surg for surgical options - recommend f/u with CV surg outpt JORGE L, improved - most likely prerenal, s/p 1L in ED - monitor BMP Elevated troponin, resolved - most likely demand, downtrended HTN - permissive htn for 24hrs - resume home meds afterwards GERD - continue home meds Afib - continue home meds CAD - continue home meds code: OOH DNR provided ppx: jairo Dispo: HONG today Addendum - Attending - Attending Attestation Date/Time: 11/28/18 5850 I personally evaluated the patient and discussed the management with Dr. Herrera. I agree with the History, Examination, Assessment and Plan documented above with any addition or exceptions noted below. 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 He will be going for HONG today. ID on board, has made abx changes. Suspect his CVA was due to emboli from the endocarditis. Await results of HONG. Will need PICC line and final ID recs on abx. He has been approved for SNF and will be going there once insurance approves unless HONG reveals need for urgent valve procedure at which point I would suggest transfer to patient's cardiac surgeon.
[2018-11-28] MEDS: cefTRIAXone\\ROCEPHIN 2 GM in Sodium Chloride 0.9% 100 ML IVPB SCH ×2 (09:22→21:48)
[2018-11-28] MEDS ORDERED: PROPOFOL 20 ML ONE (13:33)
[2018-11-28] MEDS ORDERED: PROPOFOL 200 MG/20 ML VIAL ONE (15:09)
[2018-11-28] MEDS: Apixaban 5 MG TAB PO SCH ×2 (15:32→21:45)
[2018-11-28] MEDS: Clopidogrel Bisulfate 75 MG TAB PO SCH (16:03)
[2018-11-28] MEDS: Losartan 25 MG TAB PO SCH (16:03)
[2018-11-28] MEDS: Aspirin 81 mg Enteric Coated Tablet PO SCH (16:03)
[2018-11-28] MEDS: Famotidine 20 MG TAB PO SCH ×2 (16:04→21:46)
[2018-11-28] MEDS: Potassium Chloride 10 MEQ TAB PO SCH (16:04)
[2018-11-28] MEDS: Furosemide 40 MG TAB PO SCH (16:04)
--- NOTE | 2018-11-28 20:56 | PDOC.FM ---
- Subjective Subjective: Pt complains of left hand pain that has been present since his CVA. No other complaints overnight. says he was up till 1 am this morning and very lively with family. He did not eat much yesterday, due to HONG. He has not had a BM in 3 days and usually has 2-3 daily. - Objective MAR Reviewed: Yes Vital Signs & Weight: Vital Signs (12 hours) Temp Pulse Resp BP Pulse Ox 11/28/18 19:22 100.3 F H 74 16 160/75 H 100 11/28/18 15:30 98.5 F 76 18 147/79 H 94 L 11/28/18 14:35 98.3 F 74 16 122/67 93 L 11/28/18 11:24 98.4 F 75 16 118/65 96 Weight Weight 111.811 kg I&O: 11/27/18 11/28/18 11/29/18 06:59 06:59 06:59 Intake Total 410 700 730 Output Total 350 1475 375 Balance 60 -775 355 Result Diagrams: 11/29/18 04:39 11/29/18 04:39 Additional Labs: Blood Cultures were positive for E faecalis susceptible to Ampicillin. Urine culture was negative with <10,000 mixed skin radha. EKG Reviewed by me: Yes (Normal sinus rhythm. ) Phys Exam - Physical Examination HEENT: PERRLA, sclera anicteric, oral pharynx no lesions Neck: supple Respiratory: no wheezing, clear to auscultation bilateral Cardiovascular: RRR, no significant murmur Gastrointestinal: soft, non-tender Musculoskeletal: no edema, pulses present RU&LE: 4/5, PRABHU&LE: 0/5 Unable to move L side on command. Sensation is intact throughout. Lymphatic: no nodes Psychiatric: normal affect Skin: no rash Dx/Plan (1) Bacteremia Code(s): R78.81 - BACTEREMIA Status: Acute (2) Endocarditis determined by echocardiography Code(s): I38 - ENDOCARDITIS, VALVE UNSPECIFIED Status: Acute (3) CVA (cerebral vascular accident) Code(s): I63.9 - CEREBRAL INFARCTION, UNSPECIFIED Status: Acute (4) Afib Code(s): I48.91 - UNSPECIFIED ATRIAL FIBRILLATION Status: Acute (5) JORGE L (acute kidney injury) Code(s): N17.9 - ACUTE KIDNEY FAILURE, UNSPECIFIED Status: Acute (6) BPH (benign prostatic hyperplasia) Code(s): N40.0 - BENIGN PROSTATIC HYPERPLASIA WITHOUT LOWER URINRY TRACT SYMP Status: Acute (7) HTN (hypertension) Code(s): I10 - ESSENTIAL (PRIMARY) HYPERTENSION Status: Acute (8) GERD (gastroesophageal reflux disease) Code(s): K21.9 - GASTRO-ESOPHAGEAL REFLUX DISEASE WITHOUT ESOPHAGITIS Status: Acute (9) CAD (coronary artery disease) Code(s): I25.10 - ATHSCL HEART DISEASE OF [place] CORONARY ARTERY W/O ANG PCTRS Status: Acute (10) Elevated troponin Code(s): R74.8 - ABNORMAL LEVELS OF OTHER SERUM ENZYMES Status: Acute - Plan Plan: Pt is a 83 yo CM with history of ICA stenosis, JORGE L, HTN, GERD, CAD, and BPH and presents with weakness on the left side due to 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 1. Bacteremia - Intermittent fevers, last night had fever of 99.9. - BCx: E. faecalis being treated with Amp & Rocephin - Awaits PICC line placement for outpt Abx. 2. Mitral Valve Endocarditis - Intermittent fever, possible embolic disease, hx of blood infections/Porcine valve placement - BCx E. Faecalis, Amp and rocephin (11/28), D/c Vanc (11/26) & Gent (11/27) - Consult cards (Dr. Stevenson), HONG showed mitral valve endocarditis. - Consult ID (Dr. Rothman 11/27)- appreciate recs - Discussed need for surgery and/or transfer. Will manage with Abx for 6 weeks outpt. 2. CVA - L sided weakness and slurred speech seemingly resolved at this point, difficult neuro exam - CTA/CT brain/neck showing stenosis but no ischemic defect or bleed, consider septic emboli - Optimized medical management: Eliquis, ASA, Lipitor. Will continue on these medication per Neuros recommendatioin. - TTE showing adequate EF, Aortic valve replacement - MRI reveals acute cortical infarct, right posterior - Neurology (Dr. Hernandez consulted 11/24)- appreciate recs - Rehab- has a bed. Awaiting placement of PICC line. 3. ICA stenosis - Revealed on CTA, contralateral side (left) stented in the past - Medical management optimized - Consulted CV surgery (Dr. Paredes 11/25) for surgical options, they recommend f/ u outpt 4. JORGE L - Most likely prerenal, s/p 1L in ED - Monitor daily BMPs: 1.48 > 1.37 > 1.58 > 1.54 > 1.61 - Will reduce his lasix to 40 mg daily compared to 60 mg MWFSU and 40 mg TUTHSA 5. Elevated Troponin- Resolved - Most likely demand, Downtrended (.031 > .028 > .016) 6. HTN - Allowed for permissive HTN for 24hrs - Resumed home med: Metoprolol tartrate, Losartan, Furosemide, KCl 7. GERD - Continue home med: Ranitidine 8. Afib - Continue home med: Metoprolol tartrate and Eliquis 9. CAD - Continue home meds: Lipitor, Furosemide 10. BPH -Continue home med: Tamsulosin Diet: Heart Healthy Low Sodium Code Status: Out Of Hospital DNR provided, states he is DNR as well VTE Ppx: TAO Daileys Dispo: He has a rehab bed. PICC line placement tomorrow after holding anticoagulants. Possibly can go tomorrow.
[2018-11-28] MEDS: Atorvastatin Calcium 10 MG TAB PO SCH (21:46)
[2018-11-28] MEDS: Metoprolol Tartrate 25 MG TAB PO SCH (21:46)
[2018-11-28] MEDS: Acetaminophen 325 MG TAB PO PRN (21:46)
[2018-11-29] MEDS: Ampicillin 2 GM in Sodium Chloride 0.9% 100 ML IVPB SCH ×4 (02:17→21:53)
[2018-11-29 05:20] LABS: ALT (SGPT) 10 U/L (8-55); AST (SGOT) 16 U/L (5-34); Albumin 3.2 g/dL (3.4-4.8); Alkaline Phosphatase 72 U/L (40-150); Anion Gap 13 mmol/L (10-20); BUN (Urea Nitrogen) 24 mg/dL (8.4-25.7); Bilirubin, Total 0.7 mg/dL (0.2-1.2); Calc. Creatinine Clearance 57 mL/min (70-130); Calcium 9.3 mg/dL (7.8-10.44); Carbon Dioxide 24 mmol/L (23-31); Chloride 98 mmol/L (98-107); Estimated GFR-MDRD 41; Globulin 3.1 g/dL (2.4-3.5); Glucose 119 mg/dL (83-110); Potassium 4.3 mmol/L (3.5-5.1); Protein, Total 6.3 g/dL (5.8-8.1); Sodium 131 mmol/L (136-145)
[2018-11-29 05:28] LABS: #Eosinphils 0.1 thou/uL (0.0-0.7); #Lymphocytes 0.9 thou/uL (1.20-3.40); #Neutrophils 7.3 thou/uL (1.40-6.50); %Basophils 0.3 % (0.0-1.0); %Eosinophils 1.4 % (0.0-10.0); %Monocytes 10.4 % (0.0-10.0); Mean Corpuscular HGB CONC 35.9 g/dL (32.0-36.0); Mean Corpuscular Volume 89.1 fL (78.0-98.0); Mean Platelet Volume 7.9 fL (7.4-10.4); Platelet Count 167 thou/uL (130-400); RBC Distribution Width 13.7 % (11.5-14.5); Red Blood Cell (RBC) Count 3.45 mill/uL (4.70-6.10); White Blood Cell (WBC) Count 9.4 thou/uL (4.8-10.8)
[2018-11-29] MEDS: Acetaminophen 325 MG TAB PO PRN ×2 (05:37→17:56)
--- NOTE | 2018-11-29 07:36 | OP ---
DATE OF PROCEDURE: 11/28/2018 PROCEDURE PERFORMED: Transesophageal echocardiography. INDICATION: Endocarditis. The patient was consented for the procedure. I discussed the procedure in full detail with Mr. Bella. Risks include, but not limited to the following: Damage to teeth, mouth, back of throat, damage to esophagus requiring emergency surgery as well as reaction to medication. All questions were answered. Given the above, the patient agreed to proceed with above procedure. FINDINGS: Overall LVEF was appeared normal. The mitral valve is well visualized. There is a large vegetation present on the left atrial side, measuring 1.4 cm in diameter. Left atrium is free of significant vegetations or masses. The aortic valve is well visualized. There is a bioprosthetic valve, well-seated. No obvious mass or vegetation present. The RA and RV are of normal size and function. Tricuspid valve is well visualized. There are no masses or vegetations. IMPRESSION: 1. Large vegetation on the atrial side of the mitral valve. 2. No mass or vegetation present on a bioprosthetic aortic valve. Job ID: [id number]
[2018-11-29] MEDS: cefTRIAXone\\ROCEPHIN 2 GM in Sodium Chloride 0.9% 100 ML IVPB SCH ×2 (10:43→21:54)
[2018-11-29] MEDS: Furosemide 20 MG TAB PO SCH (10:45)
[2018-11-29] MEDS: Aspirin 81 mg Enteric Coated Tablet PO SCH (10:45)
[2018-11-29] MEDS: Famotidine 20 MG TAB PO SCH ×2 (10:45→21:53)
[2018-11-29] MEDS: Potassium Chloride 10 MEQ TAB PO SCH (10:46)
[2018-11-29] MEDS: Apixaban 5 MG TAB PO SCH (10:46)
[2018-11-29] MEDS: Clopidogrel Bisulfate 75 MG TAB PO SCH (10:46)
[2018-11-29] MEDS: Losartan 25 MG TAB PO SCH (10:57)
--- NOTE | 2018-11-29 12:05 | PRG ---
DATE OF SERVICE: 11/29/2018 Mr. Bella is a pleasant, hard of hearing 83-year-old man, who was admitted, but initially a TIA that subsequently evolved into a small stroke. He was also noted to have a blood culture that was positive for Enterococcus faecalis. Subsequent transesophageal echo demonstrated vegetations on the mitral valve, and he is currently on therapy for bacterial endocarditis. We will await a PICC line placement. He will then be discharged for 6 weeks of IV therapy. He has been seen in consultation by numerous specialties, who recommend that once things are stable from his SBE, he should see his vascular surgeons in [place], where he is normally followed. In the interim, we will continue on antibiotics and await transfer discharge for ongoing treatment of his SBE. Job ID: [id number]
--- NOTE | 2018-11-29 13:28 | PRG ---
DATE OF SERVICE: 11/29/2018 SUBJECTIVE: Mr. Bella is doing well. No current complaints. OBJECTIVE: VITAL SIGNS: Blood pressure 116/58, pulse 68, and temperature 98.4. LUNGS: Clear to auscultation. HEART: Irregularly irregular. ABDOMEN: Soft, nontender, and nondistended. EXTREMITIES: No edema. IMPRESSION: 1. Endocarditis. 2. Atrial fibrillation. 3. Status post transcatheter aortic valve replacement. 4. Status post stent placement. RECOMMENDATIONS: Certainly difficult situation for Mr. Bella. He does have atrial fibrillation, requires anticoagulation therapy. He also has had a stroke likely from endocarditis. Anticoagulation therapy in the phase of endocarditis increases risk of hemorrhagic stroke, but given his risk, it showed baseline atrial fibrillation, likely the benefits outweigh the risks. I discussed risks and benefits with Mr. Bella and his . We have agreed to proceed with low-dose anticoagulation therapy. Continue antibiotic treatment. Otherwise, I have no further recommendations. Plan is to follow up with his primary housekeeping worker in [place] in [place]. Otherwise, I have no further recommendations. Job ID: [id number]
--- NOTE | 2018-11-29 13:41 | PDOC.EVN ---
Event Note - Event Note Event Note: Answered page that Mr. Matt was having persistent mild ST elevations. Reevaluated patient, he denied chest pain, shortness of breath, or discomfort. Reviewed the telemetry history and he has been having these same ST elevations since 11/27/18. Will follow closely.
--- NOTE | 2018-11-29 17:46 | PRG ---
DATE OF SERVICE: 11/29/2018 SUBJECTIVE: The patient had a HONG, which showed mitral valve regurgitation. The aortic valve that did not appear to be involved, is feeling well. He had a PICC line inserted and appears in no distress. OBJECTIVE: LUNGS: Clear. HEART: S1 and S2. Regular rate. ABDOMEN: Soft, not distended or tender. No ascites. No bladder distention. EXTREMITIES: Left hemiparesis as noted before. LABORATORY DATA: White cell count 9.4, hemoglobin 11, platelets 167, and 78% neutrophils. Sodium 131 and creatinine 1.6. Normal liver profile. Urinalysis was normal. Microbiology with Enterococcus faecalis as noted before. The HONG report with the vegetation in the mitral valve, vegetation measured 1.4 cm in diameter. The bioprosthetic valve was spared. ASSESSMENT AND DISCUSSION: 1. Benign prostatic hypertrophy with nephrolithiasis. 2. Aortic valve replacement with porcine valve in the past. 3. 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 We will continue with ampicillin, Rocephin, and the end date of therapy will be 01/14. Weekly labs including CBC, CRP, CMP, repeat blood cultures, followup imaging study probably with transthoracic echo. Job ID: [id number]
[2018-11-29] MEDS: Metoprolol Tartrate 25 MG TAB PO SCH (21:53)
[2018-11-29] MEDS: Atorvastatin Calcium 10 MG TAB PO SCH (21:53)
[2018-11-30] MEDS: Ampicillin 2 GM in Sodium Chloride 0.9% 100 ML IVPB SCH ×4 (02:55→20:22)
[2018-11-30 05:09] LABS: #Eosinphils 0.2 thou/uL (0.0-0.7); #Lymphocytes 1.5 thou/uL (1.20-3.40); #Neutrophils 6.5 thou/uL (1.40-6.50); %Basophils 0.5 % (0.0-1.0); %Eosinophils 2.3 % (0.0-10.0); %Monocytes 11.1 % (0.0-10.0); %Neutrophils 70.1 % (42.0-75.0); Hemoglobin 11.2 g/dL (14.0-18.0); Mean Corpuscular HGB CONC 32.3 g/dL (32.0-36.0); Mean Corpuscular Hemoglobin 29.5 pg (27.0-31.0); Mean Corpuscular Volume 91.2 fL (78.0-98.0); Mean Platelet Volume 8.4 fL (7.4-10.4); Platelet Count 191 thou/uL (130-400); RBC Distribution Width 12.3 % (11.5-14.5); Red Blood Cell (RBC) Count 3.78 mill/uL (4.70-6.10); White Blood Cell (WBC) Count 9.3 thou/uL (4.8-10.8)
[2018-11-30 05:33] LABS: ALT (SGPT) 9 U/L (8-55); AST (SGOT) 16 U/L (5-34); Albumin 3.1 g/dL (3.4-4.8); Alkaline Phosphatase 70 U/L (40-150); Anion Gap 14 mmol/L (10-20); BUN (Urea Nitrogen) 30 mg/dL (8.4-25.7); Bilirubin, Total 0.5 mg/dL (0.2-1.2); Calc. Creatinine Clearance 51 mL/min (70-130); Calcium 9.3 mg/dL (7.8-10.44); Carbon Dioxide 24 mmol/L (23-31); Chloride 98 mmol/L (98-107); Estimated GFR-MDRD 36; Glucose 108 mg/dL (83-110); Protein, Total 6.1 g/dL (5.8-8.1); Sodium 132 mmol/L (136-145)
--- NOTE | 2018-11-30 06:14 | PDOC.FM ---
- Subjective Subjective: Complains of left hand pain this morning. He says it is a piercing pain. Slept and ate well overnight. His stated he had a visual hallucination of a spider on the wall this morning. He had visual hallucinations before with a prostate infection, but the hallucinations resolved with treatment. - Objective MAR Reviewed: Yes Vital Signs & Weight: Vital Signs (12 hours) Temp Pulse Resp BP Pulse Ox 11/30/18 04:00 98.1 F 54 L 19 121/63 95 11/30/18 00:00 98.3 F 63 19 111/75 95 11/29/18 20:00 97.9 F 77 20 138/64 94 L Weight Weight 111.811 kg I&O: 11/28/18 11/29/18 11/30/18 06:59 06:59 06:59 Intake Total 700 970 720 Output Total 1475 825 625 Balance -775 145 95 Result Diagrams: 11/30/18 04:53 11/30/18 04:53 EKG Reviewed by me: Yes (A fib with Q wave consistent with old IA.) Phys Exam - Physical Examination Constitutional: NAD HEENT: PERRLA, oral pharynx no lesions (dry MM) Neck: no nodes Respiratory: clear to auscultation bilateral Cardiovascular: irregular Gastrointestinal: soft, non-tender, positive bowel sounds Musculoskeletal: no edema, pulses present Unable to move on the left side Lymphatic: no nodes Deviation from normal: AAOx2 Skin: no rash Dx/Plan (1) Bacteremia Code(s): R78.81 - BACTEREMIA Status: Acute (2) Endocarditis determined by echocardiography Code(s): I38 - ENDOCARDITIS, VALVE UNSPECIFIED Status: Acute (3) CVA (cerebral vascular accident) Code(s): I63.9 - CEREBRAL INFARCTION, UNSPECIFIED Status: Acute (4) Afib Code(s): I48.91 - UNSPECIFIED ATRIAL FIBRILLATION Status: Acute (5) JORGE L (acute kidney injury) Code(s): N17.9 - ACUTE KIDNEY FAILURE, UNSPECIFIED Status: Acute (6) BPH (benign prostatic hyperplasia) Code(s): N40.0 - BENIGN PROSTATIC HYPERPLASIA WITHOUT LOWER URINRY TRACT SYMP Status: Acute (7) HTN (hypertension) Code(s): I10 - ESSENTIAL (PRIMARY) HYPERTENSION Status: Acute (8) GERD (gastroesophageal reflux disease) Code(s): K21.9 - GASTRO-ESOPHAGEAL REFLUX DISEASE WITHOUT ESOPHAGITIS Status: Acute (9) CAD (coronary artery disease) Code(s): I25.10 - ATHSCL HEART DISEASE OF [place] CORONARY ARTERY W/O ANG PCTRS Status: Acute (10) Elevated troponin Code(s): R74.8 - ABNORMAL LEVELS OF OTHER SERUM ENZYMES Status: Acute - Plan Plan: Pt is a 83 yo CM with history of ICA stenosis, JORGE L, HTN, GERD, CAD, and BPH and presents with weakness on the left side due to 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 1. Bacteremia - Intermittent fevers, last night had fever of 99.9. - BCx: E. faecalis being treated with Amp & Rocephin - PICC line placement for outpt Abx. 2. Mitral Valve Endocarditis - Intermittent fever, possible embolic disease, hx of blood infections/Porcine valve placement - BCx E. Faecalis, Amp and rocephin (11/28), D/c Vanc (11/26) & Gent (11/27) - Consult cards (Dr. Stevenson), HONG showed mitral valve endocarditis. - Consult ID (Dr. Rothman 11/27)- appreciate recs. He recommends weekly CBC, CRP, and CMP weekly as well as repeat blood culture outpt. - Discussed need for surgery and/or transfer. Will manage with Abx for 6 weeks outpt. 2. CVA - L sided weakness and slurred speech seemingly resolved at this point, difficult neuro exam - CTA/CT brain/neck showing stenosis but no ischemic defect or bleed, consider septic emboli - Optimized medical management: Eliquis, ASA, Lipitor. Will continue on these medication per Neuros recommendatioin. - TTE showing adequate EF, Aortic valve replacement - MRI reveals acute cortical infarct, right posterior - Neurology (Dr. Hernandez consulted 11/24)- appreciate recs - Rehab- has a bed. Awaiting placement of PICC line. - Complains of piercing hand pain related to stroke ordered Gabapentin. 3. ICA stenosis - Revealed on CTA, contralateral side (left) stented in the past - Medical management optimized - Consulted CV surgery (Dr. Paredes 11/25) for surgical options, they recommend f/ u outpt 4. JORGE L - Most likely prerenal, s/p 1L in ED - Monitor daily BMPs: 1.48 > 1.37 > 1.58 > 1.54 > 1.61 >1.81 - Will reduce his lasix to 40 mg daily compared to 60 mg MWFSU and 40 mg TUTHSA - Gave 500 cc bolus and getting a Urine Na, Creatinine, and Urea to check a FeNa. 5. Elevated Troponin- Resolved - Most likely demand, Downtrended (.031 > .028 > .016) 6. HTN - Allowed for permissive HTN for 24hrs - Resumed home med: Metoprolol tartrate, Losartan, Furosemide, KCl 7. GERD - Continue home med: Ranitidine 8. Afib - Continue home med: Metoprolol tartrate and Eliquis 9. CAD - Continue home meds: Lipitor, Furosemide 10. BPH -Continue home med: Tamsulosin Diet: Heart Healthy Low Sodium Code Status: Out Of Hospital DNR provided, states he is DNR as well VTE Ppx: Ashlie, SCDs Dispo: He has a rehab bed. PICC line placement today after anticoagulants held for a day. JORGE L treatment today. Possibly can go tomorrow.
[2018-11-30] MEDS ORDERED: Sodium Chloride 0.9% 500 ML IV SCH (07:30)
[2018-11-30] MEDS: cefTRIAXone\\ROCEPHIN 2 GM in Sodium Chloride 0.9% 100 ML IVPB SCH ×2 (10:20→20:34)
[2018-11-30] MEDS: Losartan 25 MG TAB PO SCH (10:22)
[2018-11-30] MEDS: Furosemide 40 MG TAB PO SCH (10:25)
[2018-11-30] MEDS: Famotidine 20 MG TAB PO SCH ×2 (10:25→20:34)
[2018-11-30] MEDS: Polyethylene Glycol 3350 17 GM Packet PO SCH (10:26)
[2018-11-30] MEDS: Potassium Chloride 10 MEQ TAB PO SCH (10:26)
[2018-11-30] MEDS: Gabapentin 300 MG CAP PO SCH ×2 (10:26→20:23)
[2018-11-30 12:58] LABS: Creatinine, Urine 146.2 mg/dL (63-166)
--- NOTE | 2018-11-30 13:11 | PRG ---
DATE OF SERVICE: 11/30/2018 SUBJECTIVE: Mr. Bella is awake and alert this morning and quite cheerful. We are still awaiting bed placement. He has an Enterococcus faecalis endocarditis and is currently on ampicillin and ceftriaxone. His white count is 9300 with a hemoglobin of 11.2, hematocrit of 34.5. His vital signs remain stable with a temperature of 98.8, his pulse rate is 63, blood pressure is 140/60. We will continue broad-spectrum antibiotics in anticipation of bed placement later. Job ID: [id number]
[2018-11-30 15:50] LABS: Anion Gap 13 mmol/L (10-20); BUN (Urea Nitrogen) 31 mg/dL (8.4-25.7); Calc. Creatinine Clearance 52 mL/min (70-130); Calcium 9.2 mg/dL (7.8-10.44); Carbon Dioxide 25 mmol/L (23-31); Chloride 97 mmol/L (98-107); Estimated GFR-MDRD 38; Glucose 107 mg/dL (83-110); Potassium 4.1 mmol/L (3.5-5.1); Sodium 131 mmol/L (136-145)
--- NOTE | 2018-11-30 16:04 | SPC ---
Sonographic guided left upper extremity PICC placement HISTORY: Endocarditis. FINDINGS: After explaining the procedure and answering all questions, the left upper extremity was pr epped and draped in usual sterile fashion. Sterile technique, buffered local anesthesia, sonographic guidance, and a 22-gauge needle were used to carefully access the left cephalic vein. Sta ndard technique was used to place the tip of a 5 [place] single lumen PICC so that the tip lies at the level of the cavoatrial junction. Catheter was flushed and secured externally. Patient tolerated the procedure well and was returned in unchanged condition. IMPRESSION: Left upper extremity PICC is ready for use.
[2018-11-30] MEDS: Sodium Chloride 0.9% 1,000 ML IV SCH (17:04)
[2018-11-30] MEDS: Atorvastatin Calcium 10 MG TAB PO SCH (20:22)
[2018-11-30] MEDS: Metoprolol Tartrate 25 MG TAB PO SCH (20:34)
[2018-12-01] MEDS: Ampicillin 2 GM in Sodium Chloride 0.9% 100 ML IVPB SCH ×2 (02:28→09:55)
[2018-12-01 05:18] LABS: #Basophils 0.1 thou/uL (0.0-0.2); #Eosinphils 0.3 thou/uL (0.0-0.7); #Lymphocytes 1.6 thou/uL (1.20-3.40); #Monocytes 1.1 thou/uL (0.11-0.59); #Neutrophils 7.2 thou/uL (1.40-6.50); %Basophils 0.7 % (0.0-1.0); %Eosinophils 3.3 % (0.0-10.0); %Lymphocytes 15.7 % (21.0-51.0); %Monocytes 10.4 % (0.0-10.0); Hemoglobin 11.3 g/dL (14.0-18.0); Mean Corpuscular HGB CONC 32.3 g/dL (32.0-36.0); Mean Corpuscular Hemoglobin 29.6 pg (27.0-31.0); Mean Corpuscular Volume 91.7 fL (78.0-98.0); Mean Platelet Volume 8.3 fL (7.4-10.4); Platelet Count 208 thou/uL (130-400); RBC Distribution Width 12.5 % (11.5-14.5); Red Blood Cell (RBC) Count 3.81 mill/uL (4.70-6.10); White Blood Cell (WBC) Count 10.2 thou/uL (4.8-10.8)
[2018-12-01] MEDS: Sodium Chloride 0.9% 1,000 ML IV SCH (05:38)
[2018-12-01 05:39] LABS: ALT (SGPT) 10 U/L (8-55); AST (SGOT) 19 U/L (5-34); Albumin 3.1 g/dL (3.4-4.8); Alkaline Phosphatase 73 U/L (40-150); Anion Gap 12 mmol/L (10-20); BUN (Urea Nitrogen) 31 mg/dL (8.4-25.7); Bilirubin, Total 0.4 mg/dL (0.2-1.2); Calc. Creatinine Clearance 53 mL/min (70-130); Calcium 9.5 mg/dL (7.8-10.44); Carbon Dioxide 24 mmol/L (23-31); Chloride 99 mmol/L (98-107); Estimated GFR-MDRD 38; Globulin 3.1 g/dL (2.4-3.5); Glucose 113 mg/dL (83-110); Protein, Total 6.2 g/dL (5.8-8.1); Sodium 131 mmol/L (136-145)
--- NOTE | 2018-12-01 05:52 | PDOC.FM ---
- Subjective Subjective: Hand is much improved on Gabapentin. PICC line was placed yesterday and he hasn' t had any problems. - Objective MAR Reviewed: Yes Vital Signs & Weight: Vital Signs (12 hours) Temp Pulse Resp BP Pulse Ox 12/01/18 03:10 98.1 F 72 20 106/62 93 L 11/30/18 23:11 98.6 F 69 20 119/60 92 L 11/30/18 19:22 98.5 F 71 20 110/63 94 L Weight Weight 111.811 kg I&O: 11/29/18 11/30/18 12/01/18 06:59 06:59 06:59 Intake Total 970 960 800 Output Total 825 1075 800 Balance 145 -115 0 Result Diagrams: 12/01/18 04:50 12/01/18 04:50 Phys Exam - Physical Examination HEENT: moist MMs Neck: no nodes Respiratory: clear to auscultation bilateral Cardiovascular: irregular (A fib but controlled) Gastrointestinal: soft, non-tender Musculoskeletal: no edema, pulses present Neurological: non-focal, moves all 4 limbs Lymphatic: no nodes Psychiatric: normal affect Skin: no rash Dx/Plan (1) Bacteremia Code(s): R78.81 - BACTEREMIA Status: Acute (2) Endocarditis determined by echocardiography Code(s): I38 - ENDOCARDITIS, VALVE UNSPECIFIED Status: Acute (3) CVA (cerebral vascular accident) Code(s): I63.9 - CEREBRAL INFARCTION, UNSPECIFIED Status: Acute (4) Afib Code(s): I48.91 - UNSPECIFIED ATRIAL FIBRILLATION Status: Acute (5) JORGE L (acute kidney injury) Code(s): N17.9 - ACUTE KIDNEY FAILURE, UNSPECIFIED Status: Acute (6) BPH (benign prostatic hyperplasia) Code(s): N40.0 - BENIGN PROSTATIC HYPERPLASIA WITHOUT LOWER URINRY TRACT SYMP Status: Acute (7) HTN (hypertension) Code(s): I10 - ESSENTIAL (PRIMARY) HYPERTENSION Status: Acute (8) GERD (gastroesophageal reflux disease) Code(s): K21.9 - GASTRO-ESOPHAGEAL REFLUX DISEASE WITHOUT ESOPHAGITIS Status: Acute (9) CAD (coronary artery disease) Code(s): I25.10 - ATHSCL HEART DISEASE OF [place] CORONARY ARTERY W/O ANG PCTRS Status: Acute (10) Elevated troponin Code(s): R74.8 - ABNORMAL LEVELS OF OTHER SERUM ENZYMES Status: Acute - Plan Plan: Pt is a 83 yo CM with history of ICA stenosis, JORGE L, HTN, GERD, CAD, and BPH and presents with weakness on the left side due to 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 1. Bacteremia - Intermittent fevers, but no fever last night. - BCx: E. faecalis being treated with Amp & Rocephin - PICC line placement yesterday for outpt Abx. 2. Mitral Valve Endocarditis - Intermittent fever, possible embolic disease, hx of blood infections/Porcine valve placement - BCx E. Faecalis, Amp and rocephin (11/28), D/c Vanc (11/26) & Gent (11/27) - Consult cards (Dr. Stevenson), HONG showed mitral valve endocarditis. - Consult ID (Dr. Rothman 11/27)- appreciate recs. He recommends weekly CBC, CRP, and CMP weekly as well as repeat blood culture outpt. - Discussed need for surgery and/or transfer. Will manage with Abx for 6 weeks outpt to end 01/14. 2. CVA - L sided weakness and slurred speech seemingly resolved at this point, difficult neuro exam - CTA/CT brain/neck showing stenosis but no ischemic defect or bleed, consider septic emboli - Optimized medical management: Eliquis, ASA, Lipitor. Will continue on these medication per Neuros recommendatioin. - TTE showing adequate EF, Aortic valve replacement - MRI reveals acute cortical infarct, right posterior - Neurology (Dr. Hernandez consulted 11/24)- appreciate recs - Rehab- has a bed. Awaiting placement of PICC line. - Complains of piercing hand pain related to stroke ordered Gabapentin. 3. ICA stenosis - Revealed on CTA, contralateral side (left) stented in the past - Medical management optimized - Consulted CV surgery (Dr. Paredes 11/25) for surgical options, they recommend f/ u outpt 4. JORGE L - Most likely prerenal, s/p 1L in ED - Monitor daily BMPs: 1.48 > 1.37 > 1.58 > 1.54 > 1.61 >1.81 > 1.75 > 1.73 - Reduced his lasix to 40 mg daily compared to 60 mg MWFSU and 40 mg TUTHSA - On NS 75 overnight - FeNa: 0.7% & FeUr: 28% both suggest pre-renal. 5. Elevated Troponin- Resolved - Most likely demand, Downtrended (.031 > .028 > .016) 6. HTN - Allowed for permissive HTN for 24hrs - Resumed home med: Metoprolol tartrate, Losartan, Furosemide, KCl - BP are well controlled here in the hospital 7. GERD - Continue home med: Ranitidine 8. Afib - Continue home med: Metoprolol tartrate and Eliquis - Still in Afib, but controlled. 9. CAD - Continue home meds: Lipitor, Furosemide 10. BPH -Continue home med: Tamsulosin Diet: Heart Healthy Low Sodium Code Status: Out Of Hospital DNR provided, states he is DNR as well VTE Ppx: Martha Dailey Dispo: Creatinine is trending down. Ok to D/C to rehab.
[2018-12-01] MEDS ORDERED: Ampicillin 2 GM VIAL ONE (08:51)
[2018-12-01] MEDS: cefTRIAXone\\ROCEPHIN 2 GM in Sodium Chloride 0.9% 100 ML IVPB SCH (09:51)
[2018-12-01] MEDS: Furosemide 40 MG TAB PO SCH (09:53)
[2018-12-01] MEDS: Losartan 25 MG TAB PO SCH (09:53)
[2018-12-01] MEDS: Famotidine 20 MG TAB PO SCH (09:53)
[2018-12-01] MEDS: Gabapentin 300 MG CAP PO SCH (09:53)
[2018-12-01] MEDS: Potassium Chloride 10 MEQ TAB PO SCH (09:54)
[2018-12-01] MEDS: Polyethylene Glycol 3350 17 GM Packet PO SCH (09:54)
[2018-12-01 11:36] VITALS: BP 111/64; TEMP 97.9
--- NOTE | 2018-12-01 12:24 | PRG ---
DATE OF SERVICE: 12/01/2018 Mr. Bella is resting quietly in no distress. We will transfer him to rehabilitation bed today and continue his IV therapy for endocarditis. He had a PICC line successfully placed yesterday. Job ID: [id number]
[2018-12-01] MEDS: Apixaban 5 MG TAB PO SCH (12:42)
[2018-12-01] MEDS: Aspirin 81 mg Enteric Coated Tablet PO SCH (12:42)
[2018-12-01] MEDS: Clopidogrel Bisulfate 75 MG TAB PO SCH (12:42)
--- NOTE | 2018-12-02 04:50 | DIS ---
DATE OF ADMISSION: 11/24/2018 DATE OF DISCHARGE: 12/01/2018 RESIDENT: Dr. Jose Blair. ADMITTING ATTENDING: Dr. Bryan Gomez. DISCHARGE ATTENDING: Dr. Crescencio Rao. CONSULTS: 1. Dr. Paredes with CV Surgery. 2. Dr. Hernandez with Neuro. 3. Dr. Rothman with ID. 4. Dr. Stevenson with Cardiology. PROCEDURES: A PICC line placed on 11/30. PRIMARY DIAGNOSIS: CVA, later found to be due to embolism from vegetations of his mitral valve due to Enterococcus faecalis. SECONDARY DIAGNOSIS: 1. Acute kidney injury, most likely prerenal. 2. Afib 3. Hypertension 4. BPH 5. GERD 6. Coronary artery disease 7. Hyperlipidemia 8. CKD DISCHARGE MEDICATIONS: 1. Ventolin nebulizer. 2. Ampicillin 2 g q.6 hours, to finish on 01/14. 3. Apixaban 5 mg b.i.d. 4. Aspirin 81 mg. 5. Atorvastatin 40 mg daily. 6. Ceftriaxone 2 g q.12 hours, that should be continued until 01/14. 7. Vitamin D 5,000 units daily. 8. Clopidogrel 75 mg daily. 9. Furosemide 40 mg daily. 10. Gabapentin 300 mg b.i.d. 11. Losartan 100 mg daily. 12. Metoprolol 25 mg at bedtime. 13. Potassium chloride 10 mEq daily. 14. Ranitidine 150 mg b.i.d. 15. Sertraline 100 mg p.o. daily. Discontinued medications; 1. Zofran IV 4 mg. 2. MiraLAX 17 g daily. HISTORY OF PRESENT ILLNESS: Mr. Bella was apparently at 10:30 p.m. on the 24 of November developed left-sided weakness and a change in his mental status. He is AAO x1. He was picked up by EMS and arrived with the left-sided weakness as well as slurred speech. On arrival, it was noted that he had improved. His NIH score was initially 3 and continued to improve. He denies any pain, dizziness, shortness of breath, visual disturbance, or GI upset. He had a CT of the head that showed no acute ischemia or bleed. They later got an MRI that showed acute cortical infarct involving the posterior cortex possibly secondary to internal carotid artery stenosis versus embolic phenomenon. CV Surgery saw him after the stroke and determined that there was no surgical intervention at that time and to follow up with his superintendent commissary is Aaron. Neuro concluded that it was an embolic stroke and that there was no further management at this time considering he is already on antiplatelet and anticoagulation with Plavix, Aspirin, and Eliquis. Cardiology determined that it was best to keep him on low dose of these medications and to follow up with his superintendent commissary in [facility] in [place]. They did a HONG and it showed vegetations on that mitral valve and not the prosthetic aortic valve. He spiked low-grade fevers throughout his stay and blood cultures and urine cultures were obtained. Blood culture showed that he had Enterococcus faecalis bacteria. Urine cultures were negative. ID got involved and they determined that the Enterococcus faecalis had seeded his mitral valve and had caused an embolism to his brain. Initially, he was started on Vanc and Gentamycin which were discontinued. He is now currently on ampicillin and Rocephin until January 14. On discharge, ID would like him to get a CBC, CRP, and CMP weekly and after a period of time, get blood cultures to reassess. They recommended following up with Cardiology in the future to get a HONG to see if the antibiotics resolved the vegetations on the mitral valve. He had an JORGE L during his course, he has CKD, but his creatinine on admission was 1.48, it trended up to 1.8 during his stay, but it trended back down to 1.73 before discharge. He was given IV fluids to help with the JORGE L found to be pre-renal. DISPOSITION: He was stable upon discharge and discharged to [facility] which is a SNF. DIET: Heart healthy. ACTIVITY: As tolerated. LOCATION: He is going to [facility], a [facility] to receive rehab. FOLLOW-UP: Mr. Bella should follow up with Dr. Stevenson, the superintendent commissary in 14 days or preferably his superintendent commissary in [place]. He should follow up with Dr. Rothman, the infectious disease doctor as directed for treatment of his endocarditis with IV Abx. Dr. Rothman is managing his antibiotics that should end on January 14. He should follow up with Dr. Hernandez, the neurologist within 14 days. Job ID: [id number] [facility]
== END 2018-12-01 14:32 | DRG 64 ==
LOC: ERS 13:20 → OBSVTOIN 14:56 → INTOOBSV 14:56 → 2SE 14:56
PROVIDERS: ADMIT Student in an Organized Health Care Education/Training Program; ATTEND Student in an Organized Health Care Education/Training Program
PROC: B24BZZ4 Ultrasonography of Heart with Aorta, Transesophageal (ICD-10-PCS; principal; 2018-11-28)
PROC: 02HV33Z Insertion of Infusion Device into Superior Vena Cava, Percutaneous Approach (ICD-10-PCS; 2018-11-30)
DX: I63.431 Cerebral infarction due to embolism of right posterior cerebral artery (principal); I33.0 Acute and subacute infective endocarditis; N17.9 Acute kidney failure, unspecified; R78.81 Bacteremia; Z66 Do not resuscitate; G81.94 Hemiplegia, unspecified affecting left nondominant side; I48.91 Unspecified atrial fibrillation; I10 Essential (primary) hypertension; R29.703 NIHSS score 3; N40.0 Benign prostatic hyperplasia without lower urinary tract symptoms; K21.9 Gastro-esophageal reflux disease without esophagitis; I25.10 Atherosclerotic heart disease of native coronary artery without angina pectoris; E78.5 Hyperlipidemia, unspecified; R74.8 Abnormal levels of other serum enzymes; B95.2 Enterococcus as the cause of diseases classified elsewhere; N20.0 Calculus of kidney; I65.21 Occlusion and stenosis of right carotid artery; Z95.2 Presence of prosthetic heart valve; Z95.5 Presence of coronary angioplasty implant and graft; Z87.891 Personal history of nicotine dependence; Z88.2 Allergy status to sulfonamides
CPT/HCPCS: 36415; 36569; 70450; 70496; 70498; 70551; 71045; 80048; 80053; 81003; 82550; 82553; 82570; 84145; 84300; 84484; 84540; 85025; 85610; 85730; 86850; 86900; 86901; 87040; 87077; 87086; 87149; 87186; 93005; 93306; 93312; 94640; 94760; C1751; J0290; J0696; J1580; J2704; J3370; J3490; J7050; J7611; Q9966